=== PATIENT | female | born 1980 | race Caucasian/White ===

== ENCOUNTER 2016-08-25 08:17 | Emergency (ER) | payer OTHER ==
[~2016-08-25 08:17] MED LIST: BACTRIM DS TABL1 TA1 PO; KEFLEX500 M1 PO; NO MEDICATIONS; TYLENOL #3 PO
== END 2016-08-25 10:05 | disposition home or self-care (01) ==
LOC: CED 08:17
DX: L01.00 Impetigo, unspecified (principal); F15.10 Other stimulant abuse, uncomplicated; F31.9 Bipolar disorder, unspecified; F17.210 Nicotine dependence, cigarettes, uncomplicated; G40.909 Epilepsy, unspecified, not intractable, without status epilepticus; Z98.51 Tubal ligation status; Z98.890 Other specified postprocedural states
CPT/HCPCS: 99282